=== PATIENT | female | born 1970 ===

== ENCOUNTER 2021-06-11 09:11 | Inpatient (IN) ==
[2021-06-11] MEDS ORDERED: ROCURONIUM 50 MG/5 ML VIAL IV ONE ×2 (09:25→10:10)
[2021-06-11] MEDS ORDERED: MIDAZOLAM 2 MG/2 ML VIAL ONE (09:25)
[2021-06-11] MEDS ORDERED: LIDOCAINE 2% 5 ML VIAL ONE (09:25)
[2021-06-11] MEDS ORDERED: propofoL 200 MG/20 ML VIAL IV ONE (09:25)
[2021-06-11] MEDS ORDERED: fentaNYL 100 MCG/2 ML VIAL ONE (09:26)
[2021-06-11] MEDS ORDERED: SEVOFLURANE 1 UNIT/15 MINUTE INH ONE ×2 (09:26→10:41)
[2021-06-11] MEDS ORDERED: ONDANSETRON 4 MG/2 ML VIAL ONE (10:08)
[2021-06-11] MEDS ORDERED: HYDROCORTISONE 100 MG VIAL ONE (10:08)
[2021-06-11] MEDS ORDERED: SODIUM CHLORIDE 0.9% 250 ML IV ONE (10:08)
[2021-06-11] MEDS ORDERED: HYDROmorphone 2 MG/1 ML VIAL IV PRN (11:19)
[2021-06-11] MEDS ORDERED: ONDANSETRON 4 MG/2 ML VIAL IV PRN (11:19)
[2021-06-11] MEDS ORDERED: DEXTROSE 5% LACTATED RINGERS 1,000 ML IV SCH ×2 (11:30→12:00)
[2021-06-11 12:10] VITALS: BP 115/78
[2021-06-12] MEDS ORDERED: ENOXAPARIN 40 MG/0.4 ML SYRINGE SUBCUT SCH (05:30)
== END 2021-06-11 18:10 | DRG 208 ==
LOC: N.OR 09:11 → N.CC 09:55
PROVIDERS: ADMIT Student in an Organized Health Care Education/Training Program; ATTEND Student in an Organized Health Care Education/Training Program